=== PATIENT | female | born 1940 | race Caucasian/White ===

== ENCOUNTER → 2024-05-03 22:00 | Outpatient (REF) | payer MEDICARE, MEDICAID, SELFPAY ==
[2024-05-04 08:37] LABS: Mucous, Urine 0 SEEN /hpf (<or=2+); Red Blood Cells-Urine 0 SEEN /hpf (0-5)
[2024-05-04 08:39] LABS: Color, Urine Yellow (Yellow); Glucose, Dipstick Normal (Normal); Ketone-Dipstick Negative (Negative); Leukocyte Esterase-Dipstick 500 /ul (Negative); Nitrite-Dipstick Negative (Negative); Occult Blood-Urine 25 /ul (Negative); Protein-Dipstick 15 mg/dl (Negative); Urine Bilirubin Dipstick Negative (Negative); Urine Clarity Sl. Cloudy (Clear); Urine Urobilinogen Normal (Normal)
[2024-05-04 09:15] LABS: Bacteria 1+ /hpf (None Seen); Calcium Oxalate Crystals Ur 2+ /hpf (<or=2+); Squamous Epithelial Cells - UA 0-5 SEEN /hpf (5-10)
[2024-05-04 09:16] LABS: White Blood Cells 25-50 SEEN /hpf (0-5)
== END ==
LOC: OLS.ACW400 22:00
PROVIDERS: Visit Provider Family Medicine
DX: D72.820 Lymphocytosis (symptomatic) (principal); C91.10 Chronic lymphocytic leukemia of B-cell type not having achieved remission; D63.0 Anemia in neoplastic disease
CPT/HCPCS: 81001; 87086

== ENCOUNTER → 2024-05-05 05:00 | Outpatient (REF) | payer MEDICARE, MEDICAID, SELFPAY ==
[2024-05-05 07:58] LABS: Hematocrit 35.1 % (37-47); Hemoglobin 10.9 g/dL (12.0-15.0); Mean Corp Hgb Conc 31.1 g/dL (32-36); Mean Corpuscular Hgb 28.7 pg (27.0-32.0); Mean Corpuscular Volume 92.4 fL (81-99); Mean Platelet Vol. 9.6 fl (6.2-12.0); POSITIVE COUNT YES; Platelet Count 219 K/mm3 (150-450); RBC Distribution Width CV 13.9 % (11.6-14.6); RBC Distribution Width SD 46.9 fl (35.1-43.9)
[2024-05-05 08:07] LABS: White Blood Count 66.9 K/mm3 (4.4-11.0)
[2024-05-05 08:08] LABS: Scan Indicated on CBC? Y/N YES- FLAGS NOTED
[2024-05-06 12:08] LABS: Pathologist Review Reviewed
== END ==
LOC: OLS.ACW400 05:00
PROVIDERS: Visit Provider Family Medicine
DX: C91.10 Chronic lymphocytic leukemia of B-cell type not having achieved remission (principal)
CPT/HCPCS: 36415; 85027

== ENCOUNTER → 2024-06-14 | Outpatient (REF) | payer MEDICARE, MEDICAID, SELFPAY ==
[2024-06-14 09:31] LABS: Hematocrit 36.4 % (37-47); Hemoglobin 11.4 g/dL (12.0-15.0); Mean Corp Hgb Conc 31.3 g/dL (32-36); Mean Corpuscular Hgb 28.3 pg (27.0-32.0); Mean Corpuscular Volume 90.3 fL (81-99); Mean Platelet Vol. 9.5 fl (6.2-12.0); POSITIVE COUNT YES; Platelet Count 200 K/mm3 (150-450); RBC Distribution Width CV 15.6 % (11.6-14.6); RBC Distribution Width SD 50.8 fl (35.1-43.9); Red Blood Count 4.03 M/mm3 (4.2-5.4)
[2024-06-14 09:42] LABS: White Blood Count 61.2 K/mm3 (4.4-11.0)
[2024-06-14 09:44] LABS: Vitamin D,25 Hydroxy 77.8 ng/mL
[2024-06-14 10:06] LABS: Scan Indicated on CBC? Y/N YES- FLAGS NOTED
[2024-06-14 10:07] LABS: Differential Comment SCANNED
[2024-06-14 10:24] LABS: AST(SGOT) 22 U/L (15-37); Alanine Aminotransfer ALT/SGPT 24 U/L (13-56); Alkaline Phosphatase 101 U/L (45-117); Anion Gap 6 (5-15); BUN 18 mg/dL (7-18); BUN/Creat Ratio 26.4 RATIO (10-20); Bilirubin, Direct 0.15 mg/dL (0.00-0.30); Calcium,Total 8.9 mg/dL (8.5-10.1); Chloride 108 mmol/L (98-107); Cholesterol 127 mg/dL (200); Creatinine, Serum 0.68 mg/dL (0.55-1.02); EST Glomerular Filtration Rate 87 mL/min (>60); Est Glom Filt Rate - Afr Amer 105 mL/min (>60); Globulin 3.2 g/dL (2.2-4.2); Glucose 116 mg/dL (74-106); High Density Lipoprotein 43 mg/dL; Protein, Total 6.2 g/dL (6.4-8.2); Sodium Level 140 mmol/L (136-145); Triglycerides 95 mg/dL; Very Low Density Lipoprotein 19 mg/dL (5-40)
[2024-06-15 13:50] LABS: Pathologist Review Reviewed
== END ==
LOC: OLS.ACW400 05:00
PROVIDERS: Visit Provider Family Medicine
DX: C91.10 Chronic lymphocytic leukemia of B-cell type not having achieved remission (principal); D63.0 Anemia in neoplastic disease; D72.820 Lymphocytosis (symptomatic); E11.9 Type 2 diabetes mellitus without complications; E78.5 Hyperlipidemia, unspecified; E55.9 Vitamin D deficiency, unspecified
CPT/HCPCS: 36415; 80048; 80061; 80076; 82306; 85027

== ENCOUNTER → 2024-06-20 | Outpatient (REF) | payer MEDICARE, MEDICAID, SELFPAY | LOC: OLS.ACW300 05:00 | PROVIDERS: Visit Provider Family Medicine | DX: C91.10 Chronic lymphocytic leukemia of B-cell type not having achieved remission (principal); R26.81 Unsteadiness on feet; D63.0 Anemia in neoplastic disease; D72.820 Lymphocytosis (symptomatic); E11.9 Type 2 diabetes mellitus without complications | CPT/HCPCS: 36415; 84443 ==

== ENCOUNTER → 2024-07-26 | Outpatient (REF) | payer MEDICARE, MEDICAID, SELFPAY ==
[2024-07-26 09:43] LABS: Anion Gap 6 (5-15); BUN 18 mg/dL (7-18); BUN/Creat Ratio 26.3 RATIO (10-20); Chloride 107 mmol/L (98-107); Creatinine, Serum 0.68 mg/dL (0.55-1.02); EST Glomerular Filtration Rate 87 mL/min (>60); Est Glom Filt Rate - Afr Amer 105 mL/min (>60); Glucose 85 mg/dL (74-106); Potassium 3.9 mmol/L (3.5-5.1); Sodium Level 141 mmol/L (136-145)
== END ==
LOC: OLS.ACW400 05:00
PROVIDERS: Visit Provider Family Medicine
DX: C91.10 Chronic lymphocytic leukemia of B-cell type not having achieved remission (principal); R26.81 Unsteadiness on feet; D72.820 Lymphocytosis (symptomatic); E11.9 Type 2 diabetes mellitus without complications
CPT/HCPCS: 36415; 80048

== ENCOUNTER → 2024-11-03 05:00 | Outpatient (REF) | payer MEDICARE, MEDICAID, SELFPAY ==
[2024-11-03 14:26] LABS: Vitamin D,25 Hydroxy 88.3 ng/mL
== END ==
LOC: OLS.ACW400 05:00
PROVIDERS: Visit Provider Family Medicine
DX: C91.10 Chronic lymphocytic leukemia of B-cell type not having achieved remission (principal); D63.0 Anemia in neoplastic disease; E78.5 Hyperlipidemia, unspecified
CPT/HCPCS: 36415; 82306

== ENCOUNTER → 2024-11-07 13:30 | Outpatient (REF) | payer MEDICARE, MEDICAID, SELFPAY ==
[2024-11-08 09:23] LABS: Color, Urine Yellow (Yellow); Glucose, Dipstick Normal (Normal); Ketone-Dipstick Negative (Negative); Leukocyte Esterase-Dipstick 500 /ul (Negative); Nitrite-Dipstick Negative (Negative); Occult Blood-Urine Negative /ul (Negative); Protein-Dipstick 15 mg/dl (Negative); Specific Gravity, Urine 1.025 (1.002-1.030); Urine Bilirubin Dipstick Negative (Negative); Urine Clarity Cloudy (Clear); Urine Urobilinogen Normal (Normal)
== END ==
LOC: OLS.ACW400 13:30
PROVIDERS: Referring Provider Family Medicine; Visit Provider Family Medicine
DX: C91.10 Chronic lymphocytic leukemia of B-cell type not having achieved remission (principal); R26.81 Unsteadiness on feet; D63.0 Anemia in neoplastic disease; D72.820 Lymphocytosis (symptomatic); E11.9 Type 2 diabetes mellitus without complications
CPT/HCPCS: 81002; 87077; 87086; 87088; 87186

== ENCOUNTER → 2024-11-21 | Outpatient (REF) | payer MEDICARE, MEDICAID, SELFPAY ==
[2024-11-21 08:23] LABS: Hematocrit 35.3 % (37-47); Hemoglobin 11.1 g/dL (12.0-15.0); Mean Corp Hgb Conc 31.4 g/dL (32-36); Mean Corpuscular Hgb 29.5 pg (27.0-32.0); Mean Corpuscular Volume 93.9 fL (81-99); Mean Platelet Vol. 10.1 fl (6.2-12.0); POSITIVE COUNT YES; Platelet Count 147 K/mm3 (150-450); RBC Distribution Width SD 54.6 fl (35.1-43.9); Red Blood Count 3.76 M/mm3 (4.2-5.4)
[2024-11-21 08:31] LABS: White Blood Count 55.1 K/mm3 (4.4-11.0)
[2024-11-21 08:32] LABS: Scan Indicated on CBC? Y/N YES- FLAGS NOTED
[2024-11-21 09:05] LABS: ALB/GLOB Ratio 1.4 RATIO (0.9-2.4); AST(SGOT) 16 U/L (<=31); Alanine Aminotransfer ALT/SGPT 8 U/L (<=34); Albumin, Serum 3.6 g/dL (3.4-4.8); Alkaline Phosphatase 119 U/L (35-104); Anion Gap 11 (5-15); BUN 17 mg/dL (4-19); BUN/Creat Ratio 25.8 RATIO (10-20); Calcium,Total 8.8 mg/dL (7.6-11.0); Carbon Dioxide 24.9 mmol/L (21.0-32.0); Chloride 102 mmol/L (98-108); Creatinine, Serum 0.67 mg/dL (0.70-1.20); EST Glomerular Filtration Rate 85 (>60); Ferritin 91 ng/mL (22-378); Globulin 2.5 g/dL (2.2-4.2); Glucose 113 mg/dL (70-99); Potassium 4.3 mmol/L (3.3-5.1); Protein, Total 6.1 g/dL (5.9-8.4); Sodium Level 139 mmol/L (133-145); Total Bilirubin 0.42 mg/dL (0.00-1.30)
[2024-11-21 09:19] LABS: Pathologist Review May foll
== END ==
LOC: OLS.ACW400 05:00
PROVIDERS: Visit Provider Family Medicine
DX: C91.10 Chronic lymphocytic leukemia of B-cell type not having achieved remission (principal); D63.0 Anemia in neoplastic disease; E11.9 Type 2 diabetes mellitus without complications; E78.5 Hyperlipidemia, unspecified
CPT/HCPCS: 36415; 80053; 82728; 85027

== ENCOUNTER → 2024-12-04 | Outpatient (REF) | payer MEDICARE, MEDICAID, SELFPAY ==
[2024-12-05 10:23] LABS: Color, Urine Yellow (Yellow); Glucose, Dipstick Normal (Normal); Ketone-Dipstick Negative (Negative); Leukocyte Esterase-Dipstick 500 /ul (Negative); Nitrite-Dipstick Negative (Negative); Occult Blood-Urine Negative /ul (Negative); Protein-Dipstick 30 mg/dl (Negative); Specific Gravity, Urine 1.025 (1.002-1.030); Urine Bilirubin Dipstick Negative (Negative); Urine Clarity Sl. Cloudy (Clear); Urine Urobilinogen Normal (Normal)
== END ==
LOC: OLS.ACW400 22:00
PROVIDERS: Visit Provider Family Medicine
DX: N39.0 Urinary tract infection, site not specified (principal)
CPT/HCPCS: 81002; 87077; 87086; 87088; 87186

== ENCOUNTER → 2025-01-16 | Outpatient (REF) | payer MEDICARE, MEDICAID, SELFPAY ==
[2025-01-16 09:24] LABS: Bacteria 0 SEEN /hpf (None Seen); Mucous, Urine 0 SEEN /hpf (<or=2+)
[2025-01-16 09:57] LABS: Hematocrit 36.8 % (37-47); Hemoglobin 11.9 g/dL (12.0-15.0); Mean Corp Hgb Conc 32.3 g/dL (32-36); Mean Corpuscular Hgb 30.9 pg (27.0-32.0); Mean Corpuscular Volume 95.6 fL (81-99); Mean Platelet Vol. 9.9 fl (6.2-12.0); POSITIVE COUNT YES; Platelet Count 136 K/mm3 (150-450); RBC Distribution Width CV 15.9 % (11.6-14.6); RBC Distribution Width SD 54.7 fl (35.1-43.9); Red Blood Count 3.85 M/mm3 (4.2-5.4)
[2025-01-16 10:13] LABS: Color, Urine Yellow (Yellow); Glucose, Dipstick Normal (Normal); Ketone-Dipstick Negative (Negative); Leukocyte Esterase-Dipstick 100 /ul (Negative); Nitrite-Dipstick Negative (Negative); Occult Blood-Urine Negative /ul (Negative); Protein-Dipstick 15 mg/dl (Negative); Urine Bilirubin Dipstick Negative (Negative); Urine Clarity Sl. Cloudy (Clear); Urine Urobilinogen Normal (Normal)
[2025-01-16 10:17] LABS: ALB/GLOB Ratio 1.5 RATIO (0.9-2.4); AST(SGOT) 15 U/L (<=31); Alanine Aminotransfer ALT/SGPT 9 U/L (<=34); Albumin, Serum 3.7 g/dL (3.4-4.8); Alkaline Phosphatase 113 U/L (35-104); Anion Gap 10 (5-15); BUN 11 mg/dL (4-19); BUN/Creat Ratio 17.6 RATIO (10-20); Calcium,Total 9.1 mg/dL (7.6-11.0); Carbon Dioxide 26.1 mmol/L (21.0-32.0); Chloride 105 mmol/L (98-108); Creatinine, Serum 0.62 mg/dL (0.70-1.20); EST Glomerular Filtration Rate 87 (>60); Globulin 2.5 g/dL (2.2-4.2); Glucose 100 mg/dL (70-99); Potassium 4.1 mmol/L (3.3-5.1); Protein, Total 6.1 g/dL (5.9-8.4); Scan Indicated on CBC? Y/N YES- FLAGS NOTED; Sodium Level 141 mmol/L (133-145); Total Bilirubin 0.47 mg/dL (0.00-1.30)
[2025-01-16 10:18] LABS: White Blood Count 53.7 K/mm3 (4.4-11.0)
[2025-01-16 10:27] LABS: Red Blood Cells-Urine 0 SEEN /hpf (0-5); Squamous Epithelial Cells - UA 5-10 SEEN /hpf (5-10)
[2025-01-16 10:28] LABS: Calcium Oxalate Crystals Ur 2+ /hpf (<or=2+); White Blood Cells 0-5 SEEN /hpf (0-5)
== END ==
LOC: OLS.ACW400 04:00
PROVIDERS: Referring Provider Family Medicine; Visit Provider Family Medicine
DX: N39.0 Urinary tract infection, site not specified (principal); C91.10 Chronic lymphocytic leukemia of B-cell type not having achieved remission; E11.9 Type 2 diabetes mellitus without complications
CPT/HCPCS: 36415; 80053; 81001; 85027; 87077; 87086; 87088; 87186